=== PATIENT | male | born 1970 | race American Indian/Alaskan Native ===

== ENCOUNTER 2017-08-24 07:05 | Emergency (ER) | payer BC ==
[2017-08-24 07:16] VITALS: BP 156/90
--- NOTE | 2017-08-24 10:37 | Emergency Department Report ---
ED Upper Extremity Inj HPI - General Chief Complaint: Extremity Problem,Nontraumatic Stated Complaint: RIGHT WRIST, ARM, FINGER PAIN Time Seen by Provider: 08/24/17 10:06 Source: patient Mode of arrival: Ambulatory Limitations: No Limitations - History of Present Illness Initial Comments: This is a 47-year-old male nontoxic, well nourished in appearance, no acute signs of distress presents to the ED with c/o of right wrist pain and swelling x1 month. Patient denies any trauma to the region. Patient denies any numbness, tingling, fever, chills, headache, nausea, vomiting, chest pain, shortness of breathe. Patient denies any joint redness or warmth to touch. Patient denies any allergies. PMH includes gout, diabetes, and HTN. MD Complaint: Injury to:: right, wrist -: week(s) (1) Other Extremity Injury: Wrist: Right Other Injuries: none Severity scale (0 -10): 8 Improves With: immobilization Worsens With: movement of extremity Associated Symptoms: denies other symptoms. denies: weakness, numbness, neck pain, suspects foreign body, nausea/vomiting, heard/felt popping sensat - Related Data Previous Rx's Medication Instructions Recorded Last Taken Type Ibuprofen [Motrin] 600 mg PO Q8H PRN #30 tablet 08/24/17 Unknown Rx predniSONE [Deltasone] 40 mg PO QDAY #5 tab 08/24/17 Unknown Rx Allergies Allergy/AdvReac Type Severity Reaction Status Date / Time No Known Allergies Allergy Unverified 08/24/17 07:16 ED Review of Systems ROS: Stated complaint: RIGHT WRIST, ARM, FINGER PAIN Other details as noted in HPI Constitutional: denies: chills, fever Eyes: denies: eye pain, eye discharge, vision change ENT: denies: ear pain, throat pain Respiratory: denies: cough, shortness of breath, wheezing Cardiovascular: denies: chest pain, palpitations Endocrine: no symptoms reported Gastrointestinal: denies: abdominal pain, nausea, diarrhea Genitourinary: denies: urgency, dysuria Musculoskeletal: arthralgia. denies: back pain, joint swelling Skin: denies: rash, lesions Neurological: denies: headache, weakness, paresthesias Psychiatric: denies: anxiety, depression Hematological/Lymphatic: denies: easy bleeding, easy bruising ED Past Medical Hx - Past Medical History Hx Hypertension: Yes Hx Diabetes: Yes Additional medical history: Hx of Gout - Surgical History Past Surgical History?: Yes Additional Surgical History: Choleysystectomy - Social History Smoking Status: Never Smoker Substance Use Type: None - Medications Home Medications: Home Medications Medication Instructions Recorded Confirmed Last Taken Type Ibuprofen [Motrin] 600 mg PO Q8H PRN #30 tablet 08/24/17 Unknown Rx predniSONE [Deltasone] 40 mg PO QDAY #5 tab 08/24/17 Unknown Rx ED Physical Exam - General Limitations: No Limitations General appearance: alert, in no apparent distress - Head Head exam: Present: atraumatic, normocephalic - Eye Eye exam: Present: normal appearance, PERRL, EOMI Pupils: Present: normal accommodation - ENT ENT exam: Present: normal exam, normal orophraynx, mucous membranes moist, TM's normal bilaterally, normal external ear exam - Neck Neck exam: Present: normal inspection, full ROM. Absent: tenderness, meningismus, lymphadenopathy, thyromegaly - Respiratory Respiratory exam: Present: normal lung sounds bilaterally. Absent: respiratory distress, wheezes, rales, rhonchi, stridor, chest wall tenderness, accessory muscle use, decreased breath sounds, prolonged expiratory - Cardiovascular Cardiovascular Exam: Present: regular rate, normal rhythm, normal heart sounds. Absent: bradycardia, tachycardia, irregular rhythm, systolic murmur, diastolic murmur, rubs, gallop - GI/Abdominal GI/Abdominal exam: Present: soft, normal bowel sounds. Absent: distended, tenderness, guarding, rebound, rigid, diminished bowel sounds - Rectal Rectal exam: Present: deferred - Extremities Exam Extremities exam: Present: normal inspection, full ROM, tenderness, normal capillary refill. Absent: pedal edema, joint swelling, calf tenderness - Expanded Upper Extremity Exam Right General: Present: normal inspection Shoulder Exam: Present: normal inspection, full ROM Upper Arm exam: Present: normal inspection, full ROM Elbow exam: Present: normal inspection, full ROM Forearm Wrist exam: Present: normal inspection, full ROM Hand Wrist exam: Present: normal inspection, full ROM, tenderness, swelling. Absent: abrasion, laceration, ecchymosis, deformity, crepidus, dislocation, erythema, amputation, nail avulsion, subungual hematoma Neuro motor exam: Present: wrist extension intact, thumb opposition intact, thumb IP flexion intact, thumb adduction intact, fingers 2-5 abduction intact Neurosensory exam: Present: 2-point discrimination, radial nerve intact, ulnar nerve intact, median nerve intact Vascular: Present: vascular compromise, normal capillary refill, radial pulse, brachial pulse, ulnar pulse - Back Exam Back exam: Present: normal inspection, full ROM. Absent: tenderness, CVA tenderness (R), CVA tenderness (L), muscle spasm, paraspinal tenderness, vertebral tenderness, rash noted - Neurological Exam Neurological exam: Present: alert, oriented X3, CN II-XII intact, normal gait, reflexes normal - Psychiatric Psychiatric exam: Present: normal affect, normal mood - Skin Skin exam: Present: warm, dry, intact, normal color. Absent: rash ED Course Vital Signs 08/24/17 07:12 Temperature 97.6 F Pulse Rate 90 Respiratory 18 Rate Blood Pressure 156/90 O2 Sat by Pulse 99 Oximetry - Reevaluation(s) Reevaluation #1: 08/24/17 10:40 Patient is speaking in full sentences with no signs of distress noted. ED Medical Decision Making - Medical Decision Making This is a 47-year-old male that presents with gout flareup. Patient is stable and was examined by me. 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 Patient is notified of xray results with no questions noted by the patient. Patient received vilco ulnar gutter splint. Patient was instructed to RICE therapy. Upon exam, there is no signs or symptoms of joint cellulites. No redness or warmth to touch. Normal ROM with slight pain. Patient received Solu- medrol in the ED and discharged with Motrin and prednisone. Patient was instrcuted to Follow-up with a primary care doctor in 3-5 days or if symptoms worsen and continue return to emergency room as soon as possible. At time of discharge, the patient does not seem toxic or ill in appearance. No acute signs of distress noted. Patient agrees to discharge treatment plan of care. No further questions noted by the patient. Critical care attestation.: If time is entered above; I have spent that time in minutes in the direct care of this critically ill patient, excluding procedure time. ED Disposition Clinical Impression: Gout Qualifiers: Gout site: wrist Gout etiology: unspecified cause Chronicity: acute Laterality : right Qualified Code(s): M10.9 - Gout, unspecified Scaphoid fracture Qualifiers: Encounter type: initial encounter Scaphoid bone location: unspecified portion of scaphoid Fracture type: closed Fracture alignment: nondisplaced Laterality: right Qualified Code(s): S62.001A - Unspecified fracture of navicular [scaphoid ] bone of right wrist, initial encounter for closed fracture Disposition: TO HOME OR SELFCARE Is pt being admited?: No Does the pt Need Aspirin: No Condition: Stable Instructions: Ibuprofen (By mouth), Prednisone (By mouth), Acute Gouty Arthritis (ED) Additional Instructions: Follow-up with a primary care doctor in 3-5 days or if symptoms worsen and continue return to emergency room as soon as possible. Prescriptions: Ibuprofen [Motrin] 600 mg PO Q8H PRN #30 tablet PRN Reason: Pain predniSONE [Deltasone] 40 mg PO QDAY #5 tab Referrals: PRIMARY MD BRIDGETT [Primary Care Provider] - 3-5 Days LETHA PATEL MD [Staff Physician] - 3-5 Days [facility] [Outside] - 3-5 Days [facility] [Outside] - 3-5 Days Forms: Work/School Release Form(ED)
--- NOTE | 2017-08-24 10:46 | XRay Report ---
RIGHT WRIST THREE VIEWS: 08/24/17 07:17:00 CLINICAL: Pain and swelling. FINDINGS: Moderate diffuse soft tissue swelling with no soft tissue air or foreign body. A chronic nonunion fracture of the scaphoid with 2 separate fragments demonstrated on the oblique view. No acute fracture or dislocation. Radiocarpal joint space narrowing. There is also erosion of the ulnar styloid and a prominent erosion of the distal ulna. IMPRESSION: 1. Chronic nonunion scaphoid fracture. 2. No acute fracture or dislocation. 3. Radiocarpal joint arthritis. 4. Ulnar erosions suggest possible gout or rheumatoid arthritis. However, there are no erosions of the carpal bones or of the imaged joints of the hand.
== END 2017-08-24 11:21 | disposition home or self-care (01) ==
LOC: ED 07:05
DX: S62.001A Unspecified fracture of navicular [scaphoid] bone of right wrist, initial encounter for closed fracture (principal); M10.9 Gout, unspecified; E11.9 Type 2 diabetes mellitus without complications; I10 Essential (primary) hypertension; X58.XXXA Exposure to other specified factors, initial encounter; Y93.89 Activity, other specified; Y92.89 Other specified places as the place of occurrence of the external cause; Y99.8 Other external cause status
CPT/HCPCS: 29125; 73110; 96372; 99283; J2930